=== PATIENT | female | born 1995 | race African-American/Black ===

== ENCOUNTER 2021-03-25 11:58 | Emergency (ER) | payer OTHER, SELFPAY ==
[2021-03-25 12:11] VITALS: BP 125/64; PULSE 75; RESP 16; TEMP 36.7; O2SAT 99
--- NOTE | 2021-03-25 12:54 | ED.SKABFB ---
HPI - Skin/Abscess/Foreign Bdy General Chief complaint: Skin/Abscess/Foreign Body Stated complaint: spider bite History of Present Illness HPI narrative: This is a 25-year-old female comes in complaining of being bit by something yesterday approximately around noon states that she woke up this morning and it was swollen and filled with fluid states that it has redness that has increased since yesterday Related Data Allergies Allergy/AdvReac Type Severity Reaction Status Date / Time No Known Allergies Allergy Verified 03/25/21 12:20 Review of Systems Review of Systems: Right leg swelling with erythema and fluid-filled bite All systems reviewed & are unremarkable except as noted in HPI and below PMFSH Comments At time as signature, I have reviewed and agree with nursing past medical, social, surgical and family history. Please see nursing chart for further information. There is no relevant family history pertinent to the presenting complaint. Exam Narrative: GENERAL:Well-appearing, well-nourished, and in no acute distress. HEAD:Normocephalic, EYES: PERRLA ENT: Nares clear, CHEST: Clear to auscultation. HEART: Regular rate and rhythm ABDOMEN: Soft, nontender, EXTREMITIES: Normal range of motion. No edema.fluid filled blister with erythema and swelling surrounding area unable to identify bite area SKIN: Warm, dry, no rash. NEURO: No focal deficits. Alert and oriented x3. Course Vital Signs Vital signs: Vital Signs Temperature 98.0 F 03/25/21 12:11 Pulse Rate 75 03/25/21 12:11 Respiratory Rate 16 03/25/21 12:11 Blood Pressure 125/64 03/25/21 12:11 Pulse Oximetry 99 03/25/21 12:11 Temperature 98.0 F 03/25/21 12:11 Pulse Rate 75 03/25/21 12:11 Respiratory Rate 16 03/25/21 12:11 Blood Pressure 125/64 03/25/21 12:11 Pulse Oximetry 99 03/25/21 12:11 Procedures Other Procedure Procedure 1: Other Procedure: Drained fluid filled blister with 18 guaze needle skin still intact. surrounding area with erythema copious amount of clear yellow fluid patient tolerated well no numbing needed. no pain non occulusive dressing applied MDM - Skin/Abscess/Foreign Bdy Differential Diagnosis Differential diagnosis: Likely abscess of skin or subcutaneous tissue, dermatophytosis, urticaria, herpes zoster, cellulitis, insect bites, impetigo and contact dermatitis Discharge Plan Discharge Clinical Impression: Insect bites Qualifiers: Encounter type: initial encounter Site of insect bite: head Site of insect bite of head: unspecified part Qualified Code(s): S00.96XA - Insect bite (nonvenomous) of unspecified part of head, initial encounter Patient Disposition: Home, Self-Care Condition: Stable Instructions: Antibiotic Form, Insect Bite or Sting (ED), Abscess (ED) Additional Instructions: Use skin creams/lotion, such as those containing calamine or pramoxine to reduce itchiness Avoid scratching when possible to prevent worsening of the condition and disruption of the skin that could lead to bacterial infection To relieve itching, place a cool washcloth or some ice over the area that itches, rather than scratching Return to the office or seek ER visit if condition is not improving or worsens with fever, swelling, difficulty breathing or swallowing. Patient Language: Citizen Of [place] Prescriptions: New silver sulfadiazine [Silvadene] 1 % cream 1 applic topical DAILY Qty: 25 RF: 0 cephalexin 500 mg capsule 500 mg PO Q12H 10 Days Qty: 20 RF: 0 vitamin E 200 unit capsule 200 unit PO DAILY Qty: 30 RF: 0 Follow-up/Referrals: UNKNOWN,DOCTOR [Primary Care Provider] - Stand Alone Forms: Work/School Release IP Time of Disposition: 13:05
--- NOTE | 2021-03-25 13:00 | PC.NURSE ---
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
== END 2021-03-25 13:10 | disposition home or self-care (01) ==
PROVIDERS: Emergency Provider Nurse Practitioner Family
DX: S80.862A Insect bite (nonvenomous), left lower leg, initial encounter (principal); W57.XXXA Bitten or stung by nonvenomous insect and other nonvenomous arthropods, initial encounter
CPT/HCPCS: 10160; 99203; G0463